=== PATIENT | male | born 1990 | race African-American/Black ===

== ENCOUNTER 2017-09-06 08:14 | Emergency (ER) | payer SELFPAY ==
[~2017-09-06] VITALS: Ht 175.3 cm; Wt 80.0 kg
[2017-09-06 09:30] VITALS: BP 118/66
== END 2017-09-06 10:06 | disposition home or self-care (01) ==
LOC: ER 08:23
DX: J45.909 Unspecified asthma, uncomplicated (principal); F12.10 Cannabis abuse, uncomplicated
CPT/HCPCS: 99283

== ENCOUNTER 2018-01-11 17:11 | Emergency (ER) | payer SELFPAY ==
[~2018-01-11] VITALS: Ht 175.3 cm; Wt 82.0 kg
[2018-01-11] MEDS ORDERED: SODIUM CHLORIDE 0.9% 1,000 ML IV ONE (18:53)
[2018-01-11 19:33] LABS: BASOPHILS % 0.5 % (0.0-2.0); EOSINOPHILS % 0.8 % (0.0-5.0); HEMATOCRIT. 37.7 % (42.0-52.0); HEMOGLOBIN. 12.9 g/dL (14.0-18.0); LYMPHOCYTES % 33.4 % (20.0-50.0); MEAN CORPUSCULAR HEMOGLOBIN 31.3 pg (28.0-32.0); MEAN CORPUSCULAR VOLUME 91.4 fL (80.0-94.0); MEAN PLATELET VOLUME 7.9 fl (7.4-10.4); NEUTROPHILS % 57.3 % (40.0-76.0); PLATELET 250 x1000/uL (130-400); RED BLOOD CELL COUNT 4.12 mill/uL (4.7-6.1)
[2018-01-11 19:40] LABS: PROTHROMBIN TIME 10.2 sec (9.4-11.6)
[2018-01-11 19:45] LABS: CHLORIDE 109 mEq/L (98-107); ETHANOL BLOOD < 10 mg/dL
[2018-01-11 20:00] LABS: CLARITY URINE CLEAR (CLEAR); COLOR URINE YELLOW (YELLOW); KETONES URINE NEGATIVE (NEGATIVE); LEUKOCYTE ESTERASE URINE NEGATIVE (NEGATIVE); NITRITE URINE NEGATIVE (NEGATIVE); OCCULT BLOOD URINE NEGATIVE (NEGATIVE); PROTEIN URINE NEGATIVE (NEGATIVE); SPECIFIC GRAVITY URINE 1.032 (1.005-1.030)
[2018-01-11] MEDS ORDERED: KETOROLAC 30MG/ML VIAL IV ONE (20:15)
[2018-01-11 20:32] LABS: *AMPHETAMINES SCREEN URINE PRESUMTIVE POSITIVE (NEGATIVE); *BARBITURATES SCREEN URINE NEGATIVE (NEGATIVE); *BENZODIAZEPINES SCREEN URINE NEGATIVE (NEGATIVE); *COCAINE SCREEN URINE NEGATIVE (NEGATIVE); METHADONE URINE SCREEN NEGATIVE (NEGATIVE); OPIATES URINE SCREEN NEGATIVE (NEGATIVE); PHENCYCLIDINE URINE SCREEN NEGATIVE (NEGATIVE)
[2018-01-11 20:33] LABS: CANNABINOID URINE SCREEN PRESUMTIVE POSITIVE (NEGATIVE)
[2018-01-11 21:15] VITALS: BP 116/78
== END 2018-01-11 21:15 | disposition home or self-care (01) ==
LOC: ER 17:27
DX: Z02.89 Encounter for other administrative examinations (principal); F19.10 Other psychoactive substance abuse, uncomplicated; J45.909 Unspecified asthma, uncomplicated; F20.9 Schizophrenia, unspecified; F31.9 Bipolar disorder, unspecified
CPT/HCPCS: 36415; 71045; 80053; 80305; 80307; 80329; 81003; 82962; 85025; 85610; 93005; 96361; 96374; 99285; G0482; J1885; J7030

== ENCOUNTER 2020-09-30 11:00 | Emergency (ER) | payer SELFPAY ==
[~2020-09-30] VITALS: Ht 170.2 cm; Wt 70.0 kg
[2020-09-30 11:15] VITALS: BP 109/71
[2020-09-30] MEDS ORDERED: PEN G BENZ/PEN G PROCAINE CR 1.2 MMU/2 ML IM ONE (11:15)
[2020-09-30] MEDS ORDERED: PREDNISONE 20MG TABLET PO ONE (11:15)
[2020-09-30] MEDS ORDERED: IBUPROFEN 600MG TABLET PO ONE (11:15)
== END 2020-09-30 11:45 | disposition home or self-care (01) ==
LOC: ER 11:00
DX: J03.90 Acute tonsillitis, unspecified (principal); F12.10 Cannabis abuse, uncomplicated; F15.10 Other stimulant abuse, uncomplicated; F11.10 Opioid abuse, uncomplicated
CPT/HCPCS: 96372; 99283; J0558; J7512

== ENCOUNTER 2025-04-25 16:11 | Emergency (ER) | payer MEDICAID | END 2025-04-25 16:45 | disposition left against medical advice (07) | LOC: ER 16:11 | DX: R22.1 Localized swelling, mass and lump, neck (principal); Z53.21 Procedure and treatment not carried out due to patient leaving prior to being seen by health care provider ==